=== PATIENT | female | born 1995 | race African-American/Black ===

== ENCOUNTER 2019-05-19 00:23 | Observation (INO) | payer MEDICAID ==
[~2019-05-19] VITALS: Ht 170.2 cm; Wt 113.4 kg
[2019-05-19] MEDS ORDERED: PRENATAL VITAMINS (00:53)
== END 2019-05-19 02:34 | disposition home or self-care (01) ==
LOC: 8 EST LDRP 00:23
PROVIDERS: ADMIT Obstetrics & Gynecology; ATTEND Obstetrics & Gynecology
DX: O26.893 Other specified pregnancy related conditions, third trimester (principal); Z3A.29 29 weeks gestation of pregnancy
CPT/HCPCS: 82731; 99281; G0378

== ENCOUNTER 2019-06-29 21:39 | Observation (INO) | payer MEDICAID ==
[~2019-06-29 21:39] MED LIST: PRENATAL VITAMINS
== END 2019-06-29 22:43 | disposition home or self-care (01) ==
LOC: 8 EST LDRP 21:39
PROVIDERS: ADMIT Obstetrics & Gynecology; ATTEND Obstetrics & Gynecology
DX: O26.893 Other specified pregnancy related conditions, third trimester (principal); R10.30 Lower abdominal pain, unspecified; O36.8130 Decreased fetal movements, third trimester, not applicable or unspecified; Z3A.35 35 weeks gestation of pregnancy
CPT/HCPCS: 99281; G0378

== ENCOUNTER 2025-03-01 21:14 | Emergency (ER) | payer MEDICAID ==
[~2025-03-01] VITALS: Ht 170.2 cm; Wt 113.3 kg
[2025-03-01 21:40] VITALS: O2SAT 100
[2025-03-01 21:54] LABS: CLARITY URINE CLEAR (CLEAR); COLOR URINE YELLOW (YELLOW); GLUCOSE URINE NEGATIVE (NEGATIVE); KETONES URINE 2+ (NEGATIVE); LEUKOCYTE ESTERASE URINE NEGATIVE (NEGATIVE); NITRITE URINE NEGATIVE (NEGATIVE); OCCULT BLOOD URINE NEGATIVE (NEGATIVE); PH URINE 5.5 (4.5-8.0); PROTEIN URINE NEGATIVE (NEGATIVE); SPECIFIC GRAVITY URINE 1.017 (1.005-1.030); UROBILINOGEN URINE 1.0 E.U./dL (0.2-1.0)
[2025-03-01 21:58] LABS: *AMPHETAMINES SCREEN URINE NEGATIVE (NEGATIVE); *BARBITURATES SCREEN URINE NEGATIVE (NEGATIVE); *BENZODIAZEPINES SCREEN URINE NEGATIVE (NEGATIVE); *COCAINE SCREEN URINE NEGATIVE (NEGATIVE); CANNABINOID URINE SCREEN NEGATIVE (NEGATIVE); ECSTASY MDMA SCREEN URINE NEGATIVE (NEGATIVE); METHADONE URINE SCREEN NEGATIVE (NEGATIVE); OPIATES URINE SCREEN NEGATIVE (NEGATIVE); PHENCYCLIDINE URINE SCREEN NEGATIVE (NEGATIVE)
[2025-03-01 22:04] LABS: BASOPHILS % 0.1 % (0.0-2.0); EOSINOPHILS % 0.5 % (0.0-5.0); HEMATOCRIT. 37.0 % (36.0-48.0); HEMOGLOBIN. 12.7 g/dL (12.0-16.0); LYMPHOCYTES % 19.8 % (20.0-50.0); MEAN PLATELET VOLUME 9.1 fl (7.4-10.4); MONOCYTES % 5.0 % (2.0-8.0); NEUTROPHILS % 74.6 % (40.0-76.0); PLATELET 223 x1000/uL (130-400); RED BLOOD CELL COUNT 4.10 mill/uL (4.2-5.4); RED CELL DISTRIBUTION WIDTH 14.6 % (11.6-14.6)
[2025-03-01 22:17] LABS: INR 1.0
[2025-03-01 22:18] LABS: HCG SCREEN POSITIVE
[2025-03-01 22:22] LABS: CREATININE 0.7 mg/dL (0.6-1.0)
[2025-03-01 22:23] LABS: UREA NITROGEN BLOOD 6 mg/dL (9-23)
[2025-03-01 22:24] LABS: ASPARTATE AMINOTRANSFERASE 19 IU/L (<34)
[2025-03-01 22:25] LABS: BILIRUBIN DIRECT < 0.1 mg/dL (<=3.0); BILIRUBIN TOTAL 0.3 mg/dL (0.1-1.0); PROTEIN TOTAL 6.7 g/dL (6.0-8.3)
[2025-03-01 22:27] VITALS: BP 103/74; PULSE 93; RESP 20; TEMP 36.9; O2SAT 100
[2025-03-01 22:40] LABS: B-HCG QUANTITATIVE 19624 mIU/mL (<6)
== END 2025-03-01 22:35 | disposition short-term general hospital (02) ==
LOC: ER 21:14 → CMPBEDREQ 03-02 07:58
DX: O26.893 Other specified pregnancy related conditions, third trimester (principal); R10.84 Generalized abdominal pain; R10.20 Pelvic and perineal pain unspecified side; Z3A.28 28 weeks gestation of pregnancy; Z79.899 Other long term (current) drug therapy; W18.30XA Fall on same level, unspecified, initial encounter; Y93.89 Activity, other specified; Y92.89 Other specified places as the place of occurrence of the external cause; Y99.8 Other external cause status
CPT/HCPCS: 36415; 76815; 80048; 80076; 80305; 80320; 81003; 83735; 84702; 84703; 85025; 86592; 86695; 86696; 86850; 86900; 87340; 87491; 87591; 99285; G0480